=== PATIENT | male | born 1965 | race Caucasian/White ===

== ENCOUNTER → 2023-05-27 07:19 | Outpatient (REF) | payer BC, SELFPAY | LOC: HWRAD 07:19 | PROVIDERS: ATTENDING PHYSICIAN Student in an Organized Health Care Education/Training Program | DX: R10.9 Unspecified abdominal pain (principal) | CPT/HCPCS: 74176 ==

== ENCOUNTER → 2023-06-06 11:38 | Outpatient (REF) | payer BC, SELFPAY | LOC: HWRAD 11:38 | PROVIDERS: ATTENDING PHYSICIAN Student in an Organized Health Care Education/Training Program | DX: R16.1 Splenomegaly, not elsewhere classified (principal) | CPT/HCPCS: 74177; Q9967 ==